=== PATIENT | female | born 1950 | race Caucasian/White ===

== ENCOUNTER 2021-06-28 07:30 | Inpatient (IN) ==
[~2021-06-28 07:30] MED LIST: Buffered Lidocaine 1% SYRIN 1 ml INTRADERM ONE; DiMENhydriNATE IV 50 mg/ml 1 ml VIAL IV PUSH PRN; Lactated Ringers 1000 ml BAG 1,000 ML IV SCH; Naloxone 0.4 mg VIAL 0.4 mg/ml 1 ml VIAL IV PRN; Ondansetron 4 mg VIAL 2 MG/ML 2 ml VIAL IV PRN; Ropivacaine 5 MG/ML 20 ML VIAL 0.5% (100 MG) ONE; diPHENhydraMINE IV 50 MG/ML 1 ml VIAL (BENADRYL) IV PRN
[2021-06-28] MEDS ORDERED: ceFAZolin 1 GM ADVAN 1 GM ADDV.VIAL IVPB ONE (08:59)
[2021-06-28] MEDS ORDERED: Lidocaine 1% MPF 5 ML VIAL ONE (09:00)
[2021-06-28] MEDS ORDERED: Propofol 10 MG/ML 20 ML BTL ONE (09:54)
[2021-06-28] MEDS ORDERED: Midazolam 5 mg/5 ml VIAL 1 mg/ml 5 ml VIAL (5 mg) ONE (10:32)
[2021-06-28] MEDS ORDERED: Bupivacaine 0.5% SDV PF 30ML VIAL ONE (10:32)
[2021-06-28] MEDS ORDERED: Dexamethasone IV 4 MG/ML VIAL 1 ml VIAL ONE ×2 (10:32→12:05)
[2021-06-28] MEDS ORDERED: Acetaminophen IV 1 GM/100ML 100 ML IV ONE (11:15)
[2021-06-28] MEDS ORDERED: Rocuronium 50 mg VIAL 10 mg/ml 5 ml VIAL (50 mg) ONE (11:15)
[2021-06-28] MEDS ORDERED: fentaNYL 100 mcg/2 ml 50 MCG/ML VIAL ONE ×3 (11:57→14:37)
[2021-06-28] MEDS ORDERED: Ondansetron 4 mg VIAL 2 MG/ML 2 ml VIAL ONE (12:05)
[2021-06-28] MEDS ORDERED: Magnesium Hydroxide LIQ 30 ML UDC PO PRN (12:34)
[2021-06-28] MEDS ORDERED: diPHENhydraMINE IV 50 MG/ML 1 ml VIAL (BENADRYL) IV PRN (12:34)
[2021-06-28] MEDS ORDERED: Ondansetron ODT 4 mg TAB 4 MG TAB PO PRN (12:34)
[2021-06-28] MEDS ORDERED: Lactulose 30 ml UDC PO PRN (12:34)
[2021-06-28] MEDS ORDERED: diPHENhydraMINE 25 mg TAB PO PRN (12:34)
[2021-06-28] MEDS ORDERED: Ondansetron 4 mg VIAL 2 MG/ML 2 ml VIAL IV PRN (12:34)
[2021-06-28] MEDS ORDERED: HYDROmorphone 0.5 MG/0.5 ML SYRINGE ONE ×2 (12:36→12:43)
[2021-06-28] MEDS: HYDROmorphone 1 MG/1 ML SYRINGE IV PRN ×2 (14:47→15:00)
[2021-06-28] MEDS ORDERED: HYDROmorphone 1 MG/1 ML SYRINGE ONE (14:48)
[2021-06-28] MEDS: Lactated Ringers 1000 ml BAG 1,000 ML IV SCH (15:57)
[2021-06-28] MEDS: ceFAZolin 1 GM ADVAN 1 GM in NS 0.9% 50 ML 50 ML IVPB SCH (20:32)
[2021-06-28] MEDS: CMCS: SitaGLIPtin 25mg TAB (NF) 25 MG TAB PO SCH (20:34)
[2021-06-28] MEDS: Magnesium Hydroxide LIQ 30 ML UDC PO SCH (20:34)
[2021-06-28] MEDS ORDERED: Sitaglip/Metform 50/1000(NR) TAB PO SCH (21:00)
[2021-06-29] MEDS: Lactated Ringers 1000 ml BAG 1,000 ML IV SCH (02:52)
[2021-06-29] MEDS: ceFAZolin 1 GM ADVAN 1 GM in NS 0.9% 50 ML 50 ML IVPB SCH ×2 (05:01→11:47)
[2021-06-29 06:22] LABS: Hematocrit 27 % (35-47); Mean Platelet Volume 7.7 fL (7.4-10.4); Platelet Count 212 10^3/uL (150-450)
[2021-06-29 06:41] LABS: Calcium 8.8 mg/dL (8.6-10.3); Potassium 4.1 mmol/L (3.5-5.0); eGFR CKD-EPI 45.3 (>60)
[2021-06-29 08:01] VITALS: BP 112/61
[2021-06-29] MEDS: Magnesium Hydroxide LIQ 30 ML UDC PO SCH (08:20)
[2021-06-29] MEDS: CMCS: SitaGLIPtin 25mg TAB (NF) 25 MG TAB PO SCH (08:22)
[2021-06-29] MEDS ORDERED: Vitamin THERAPEUTIC TAB PO SCH (09:00)
[2021-06-29] MEDS ORDERED: Valsartan/HCTZ 160/25(NF) TAB PO SCH (09:00)
[2021-06-29] MEDS ORDERED: CANAGLIFLOZIN 100 MG PO SCH (09:00)
== END 2021-06-29 12:45 | disposition home or self-care (01) | DRG 470 ==
LOC: AA 08:45 → INTOOBSV 08:45 → SSU 12:34
PROVIDERS: ADMIT Orthopaedic Surgery Adult Reconstructive Orthopaedic Surgery; ATTEND Orthopaedic Surgery Adult Reconstructive Orthopaedic Surgery

== ENCOUNTER 2022-08-01 05:59 | Inpatient (IN) ==
[2022-08-01] MEDS ORDERED: Lactated Ringers 1000 ml BAG 1,000 ML IV SCH ×2 (06:00→12:00)
[2022-08-01] MEDS ORDERED: Buffered Lidocaine 1% SYRIN 1 ml INTRADERM ONE (06:00)
[2022-08-01] MEDS ORDERED: Midazolam 2 mg/2 ml VIAL 1 mg/ml 2 ml VIAL (2 mg) ONE ×2 (06:57→08:21)
[2022-08-01] MEDS ORDERED: fentaNYL 100 mcg/2 ml 50 MCG/ML VIAL ONE ×3 (06:57→12:22)
[2022-08-01] MEDS ORDERED: Dexamethasone IV 4 MG/ML VIAL 1 ml VIAL ONE (07:03)
[2022-08-01] MEDS ORDERED: Propofol 10 MG/ML 20 ML BTL ONE (07:03)
[2022-08-01] MEDS ORDERED: Ondansetron 4 mg VIAL 2 MG/ML 2 ml VIAL ONE (07:03)
[2022-08-01] MEDS ORDERED: Phenylephrine IV 10 MG/ML 1 ml VIAL ONE (07:03)
[2022-08-01] MEDS ORDERED: ceFAZolin 2 GM PREMIX 2 GM/50 ML BAG ONE (07:21)
[2022-08-01] MEDS ORDERED: Lidocaine 1% MPF 5 ML VIAL ONE (07:57)
[2022-08-01] MEDS ORDERED: ROPIVACAINE 5 MG/ML 30 ML BTL (0.5%) ONE ×2 (07:57→08:28)
[2022-08-01] MEDS ORDERED: Rocuronium 50 mg VIAL 10 mg/ml 5 ml VIAL (50 mg) ONE (07:58)
[2022-08-01] MEDS ORDERED: Acetaminophen IV 1 GM/100ML 1,000 MG/100 ML BAG IV ONE (10:03)
[2022-08-01] MEDS ORDERED: HYDROmorphone 0.5 MG/0.5 ML SYRINGE ONE (10:34)
[2022-08-01] MEDS ORDERED: Naloxone 0.4 mg VIAL 0.4 mg/ml 1 ml VIAL IV PRN (11:47)
[2022-08-01] MEDS ORDERED: Ondansetron 4 mg VIAL 2 MG/ML 2 ml VIAL IV PRN ×2 (11:47→12:00)
[2022-08-01] MEDS ORDERED: fentaNYL 100 mcg/2 ml 50 MCG/ML VIAL IV PRN (11:47)
[2022-08-01] MEDS ORDERED: Acetaminophen IV 1 GM/100ML 1,000 MG/100 ML BAG IV PRN (11:47)
[2022-08-01] MEDS ORDERED: ceFAZolin 1 GM ADVAN 1 GM in NS 0.9% 50 ML 50 ML IVPB SCH (12:00)
[2022-08-01] MEDS ORDERED: Magnesium Hydroxide LIQ 30 ML UDC PO PRN (12:00)
[2022-08-01] MEDS ORDERED: Lactulose 30 ml UDC PO PRN (12:00)
[2022-08-01] MEDS ORDERED: Ondansetron ODT 4 mg TAB 4 MG TAB PO PRN (12:00)
[2022-08-01] MEDS ORDERED: Morphine 2 MG/ML SYRINGE IV PRN (12:00)
[2022-08-01] MEDS ORDERED: HYDROmorphone 1 MG/1 ML SYRINGE ONE (12:09)
[2022-08-01] MEDS: HYDROmorphone 1 MG/1 ML SYRINGE IV PRN ×5 (12:10→13:03)
[2022-08-01] MEDS ORDERED: Dextrose 50% Syringe 50 ml 25 GM/50 ML SYRINGE IV PUSH PRN (12:52)
[2022-08-01] MEDS: ceFAZolin 1 GM ADVAN 1 GM in NS 0.9% 50 ML 50 ML IVPB SCH (18:05)
[2022-08-01] MEDS: Magnesium Hydroxide LIQ 30 ML UDC PO SCH (21:36)
[2022-08-02] MEDS: ceFAZolin 1 GM ADVAN 1 GM in NS 0.9% 50 ML 50 ML IVPB SCH ×2 (01:32→09:22)
[2022-08-02 03:15] VITALS: BP 110/62
[2022-08-02 07:16] LABS: Hematocrit 27 % (35-47); Hemoglobin 8.9 g/dL (12.0-16.0); Mean Platelet Volume 7.9 fL (7.4-10.4); Platelet Count 165 10^3/uL (150-450)
[2022-08-02 07:39] LABS: Calcium 8.6 mg/dL (8.6-10.3); Creatinine, Serum 1.16 mg/dL (0.51-0.95); eGFR CKD-EPI 50.7 (>60)
[2022-08-02] MEDS ORDERED: Valsartan/HCTZ 160/25(NF) TAB PO SCH (09:00)
[2022-08-02] MEDS ORDERED: Vitamin THERAPEUTIC TAB PO SCH (09:00)
[2022-08-02] MEDS: Magnesium Hydroxide LIQ 30 ML UDC PO SCH (09:28)
== END 2022-08-02 13:33 | disposition home or self-care (01) | DRG 470 ==
LOC: AA 05:59 → SSU 15:03
PROVIDERS: ADMIT Orthopaedic Surgery Adult Reconstructive Orthopaedic Surgery; ATTEND Orthopaedic Surgery Adult Reconstructive Orthopaedic Surgery